=== PATIENT | male | born 1985 | race Asian ===

== ENCOUNTER 2016-09-07 09:45 | Day surgery (SDC) | payer OTHER ==
[~2016-09-07] VITALS: Ht 180.3 cm; Wt 77.0 kg
[~2016-09-07 09:45] MED LIST: 0.9% Sodium Chloride 1,000 ML IV PRN; OMEP20CA11 PO; Sodium Chloride LOK Flush 10 mL Syringe IV PRN; fentaNYL-PF 50 mCg/mL 2 mL Inj IVPUSH PRN
[2016-09-07 10:03] VITALS: BP 118/69; PULSE 66; RESP 16; O2SAT 99
[2016-09-07 11:06] VITALS: BP 105/63; PULSE 81; RESP 16; O2SAT 98
[2016-09-07 11:16] VITALS: BP 96/55; PULSE 80; RESP 16; O2SAT 98
[2016-09-07 11:26] VITALS: BP 103/68; PULSE 78; RESP 16; O2SAT 98
--- NOTE | 2016-09-07 20:30 | ENDO ---
[address] [address] ENDOSCOPY PROCEDURE PATIENT: PAULINA DIEGO : 1985 MR#: [id number] ADMIT: 09/07/2016 JOB ID: [id number] DATE: 09/07/2016 PROCEDURE: Esophagogastroduodenoscopy. INDICATION: Diarrhea. Patient's ASA classification is I. Mallampati score was I. MEDICATIONS: Versed 11 mg, fentanyl 225 mcg. INSTRUMENT USED: GIF-H190. PROCEDURE DETAILS: After informed consent was obtained, the patient was brought into the GI suite, where he was placed on oxygen via nasal cannula and monitored with continuous pulse oximeter, telemetry, and blood pressure monitoring. A time-out was performed. Then, he was placed in a left lateral decubitus position and medications were administered for sedation. A bite block was placed. The standard EGD scope was inserted through the bite block and advanced under direct visualization to second portion of duodenum without difficulty. FINDINGS: 1. Normal-appearing duodenal bulb, first and second portion. Multiple random biopsies were obtained. 2. Normal-appearing pylorus, antrum and gastric body. Retroflexed views in the gastric body revealed a normal-appearing cardia and fundus. 3. Multiple random biopsies were obtained throughout the antrum and body of the stomach. 4. Normal-appearing GE junction with a regular Z-line at 38 cm. 5. Normal appearing esophagus. IMPRESSION: Normal esophagogastroduodenoscopy exam to second portion duodenum. RECOMMENDATIONS: Await biopsy results. Continue current medications and proceed to colonoscopy. PROCEDURE PERFORMED: Colonoscopy. INDICATION: Diarrhea. Please see above for ASA classification, Mallampati score, and medications. INSTRUMENT USED: [id number]-H180AL. PREP QUALITY: Good. PROCEDURE DETAILS: After completion of the EGD exam, the patient was turned and then a digital rectal exam was performed which was unremarkable. The colonoscope was then inserted into the rectum and advanced under direct visualization to the terminal ileum which was identified by the presence of the ileocecal valve and villous-appearing mucosa of the terminal ileum. From the terminal ileum the colonoscope was withdrawn back into the rectum as the mucosa and lumen were examined. In the rectum, retroflexion was performed. Following retroflexion, remaining air in the rectum was suctioned, and procedure was completed. FINDINGS: 1. Normal exam from rectum to terminal ileum. 2. Multiple random biopsies were obtained throughout the colon and terminal ileum. IMPRESSION: 1. Normal colonoscopy to terminal ileum. RECOMMENDATIONS: 1. Await biopsy results. 2. Follow up in GI clinic. COMPLICATIONS: None. ESTIMATED BLOOD LOSS: Less than 5 mL.
== END 2016-09-07 23:59 | disposition home or self-care (01) ==
LOC: END 09:45
PROVIDERS: ATTEND Internal Medicine Gastroenterology
DX: R19.7 Diarrhea, unspecified (principal); K29.50 Unspecified chronic gastritis without bleeding; K21.9 Gastro-esophageal reflux disease without esophagitis
CPT/HCPCS: 43239; 45380; 99153; G0500; J2250; J3010; J7030